=== PATIENT | female | born 1950 | race Two or more races ===

== ENCOUNTER 2023-10-17 11:21 | Emergency (ER) | payer MEDICARE, OTHER, SELFPAY ==
[2023-10-17 11:27] VITALS: BP 110/76
[2023-10-17 11:34] VITALS: BMI 34.0
[2023-10-17] MEDS: NSS 1000 IV (11:42)
[2023-10-17 11:53] LABS: % Basophils 0.2 % (0-2); % Eosinophils 0.2 % (0-6); % Immature Granulocytes 1.5 % (0-0.5); % Lymphocytes 9.4 % (20.5-51.1); % Monocytes 7.8 % (1.7-9.3); % Neutrophils 80.9 % (42.2-75.2); Absolute Immature Granulocytes 0.2 10^3/uL (0-0.05); Absolute Monocytes 0.8 10^3/uL (0.1-0.6); Absolute Neutrophils 8.8 10^3/uL (1.4-6.5); Hematocrit 37.5 % (37.0-47.0); Hemoglobin 13.4 g/dL (12.0-16.0); Mean Corp Hgb Conc. 35.7 g/dL (33.0-37.0); Mean Corpuscular Hgb 31.7 pg (27.0-31.0); Mean Corpuscular Volume 88.7 fL (81.0-99.0); Mean Platelet Volume 8.9 fL (7.4-10.4); Nucleated Red Blood Cells % 0 %; Platelet Count 524 10^3/uL (130-400); Red Blood Cell Count 4.23 10^6/uL (4.20-5.40); Red Cell Dist. Width 12.7 % (11.5-14.5); White Blood Cell Count 10.8 10^3/uL (4.8-10.8)
[2023-10-17 12:07] LABS: ALT (SGPT) 23 U/L (0-35); AST (SGOT) 24 U/L (14-36); Alkaline Phosphatase 122 U/L (38-126); Blood Urea Nitrogen 27 mg/dl (7-17); Calcium 9.1 mg/dl (8.4-10.2); Carbon Dioxide 29 mmol/L (22-30); Chloride 95 mmol/L (98-107); Estimated Creatinine Clearance 55 ml/min; Glucose 128 mg/dl (70-99); Lipase 80 U/L (23-300); Potassium 3.3 mmol/L (3.5-5.1); Sodium 129 mmol/L (135-145); Total Bilirubin 1.6 mg/dl (0.2-1.3); Total Protein 6.4 g/dl (6.3-8.2); eGFR > 60.00
--- NOTE | 2023-10-17 12:20 | EDRN ---
this RN notified provider of the pts K level
[2023-10-17 14:00] VITALS: BP 162/85
[2023-10-17] MEDS: ZOFRAN 4 MG IV (14:16)
--- NOTE | 2023-10-17 14:25 | ED.GENMED ---
History of Present Illness
General
Chief Complaint: Abdominal Symptoms
Source: patient
Exam Limitations: none
Time Seen by Provider: 10/17/23 12:05
Nursing documentation reviewed up to this point in time: agreed with
Travel History
Have you had any contact with someone who has COVID-19?: No
Do you have any symptoms of coronavirus? Fever > 100 degrees, chills, cough, shortness of breath, sore throat, loss of taste or smell, muscle aches, or headache?: No
History of Present Illness
History of Present Illness:
73-year-old female with history of GERD, OCD, anxiety depression had left knee replaced 9 days ago, stopped taking her Senokot, Colace, oxycodone 4 days ago.
She states she had presents stating she is feeling nauseous and 'like something is blocked' since she has been unable to hold anything down. States she started with nausea and vomiting every 10 to 15 minutes 3 days ago.
A small bowel movement today and a normal bowel movement 2 days ago. She had an esophagectomy in 1993, no previous abdominal surgeries.
She states her last emesis was 4 hours ago.
She still feels slightly nauseous.
She denies abdominal pain.
Past History
Past History
ED Past Medical History: Hypercholesterolemia, Psychiatric (anxiety) and Other (Anxiety, esophagectomy, inguinal hernia repair, previous Graves' disease)
ED Past Surgical History: Orthopedic and Other (Esophagectomy)
Social History
Tobacco: Non-smoker
Alcohol: None
Personal: Single
Living: alone
Family History
Family History: Other (Thyroid disease)
Review of Systems
Review of Systems
Allergies reviewed?: Yes
All Other Systems: ROS reviewed and negative except as documented in HPI and ROS
Constitutional: Denies fever or chills
Respiratory: Denies trouble breathing
Cardiac: Denies chest pain
ABD/GI: Reports nausea and vomiting; Denies abdominal pain, diarrhea, constipated, bloody stools, black stools or anorexia
: Reports no symptoms
Musculoskeletal: Reports no symptoms
Skin: Reports no symptoms
Neurological: Reports no symptoms
Phy Exam
Physical Exam
Physical Exam:
GENERAL: No acute distress. A&Ox3.
CONSTITUTIONAL: Afebrile.
EYES: Clear, conjunctivae normal
ENMT: moist mucus membranes, Pharynx nl
RESPIRATORY: Regular respirations, nonlabored, lungs clear.
CARDIOVASCULAR: Regular rate and rhythm, no murmurs, no rubs.
GI: Soft, nontender, nondistended, normal BS
MUSCULOSKELETAL: Moves with ease. Well perfused.
SKIN: Warm, dry, pink
PSYCH: Normal mood and affect. Well kept, interactive and appropriate
NEUROLOGIC: Awake, alert and oriented. No focal neurological deficits
Course
Orders/Labs/Results
Orders:
Orders
10/17/23 11:41
Complete Blood Count/With Diff Urgent
Comprehensive Metabolic Panel Urgent
Lipase Urgent
10/17/23 11:42
0.9% Sodium Chloride 1000 ml [Nss] 1,000 ml IV BOLUS
10/17/23 14:01
CT Abd/Pel (IV only)-DH only Urgent
Comment:
Reason For Exam: vomiting mild abd pain
10/17/23 14:04
Ondansetron Injectable [Zofran] 4 mg IV NOW STA
10/17/23 15:49
Basic Metabolic Panel Urgent
Abnormal Lab Results
10/17/23 10/17/23
11:41 15:49
MCH 31.7 H pg
(27.0-31.0)
Plt Count 524 H 10^3/uL
(130-400)
Abs Immat Gran (auto) 0.2 H 10^3/uL
(0-0.05)
Absolute Neuts (auto) 8.8 H 10^3/uL
(1.4-6.5)
Absolute Lymphs (auto) 1.0 L 10^3/uL
(1.2-3.4)
Absolute Monos (auto) 0.8 H 10^3/uL
(0.1-0.6)
Immature Gran % 1.5 H %
(0-0.5)
Neutrophils % 80.9 H %
(42.2-75.2)
Lymphocytes % 9.4 L %
(20.5-51.1)
Sodium 129 L mmol/L 130 L mmol/L
(135-145) (135-145)
Potassium 3.3 L mmol/L
(3.5-5.1)
Chloride 95 L mmol/L 95 L mmol/L
(98-107) (98-107)
BUN 27 H mg/dl 27 H mg/dl
(7-17) (7-17)
Glucose 128 H mg/dl 100 H mg/dl
(70-99) (70-99)
Total Bilirubin 1.6 H mg/dl
(0.2-1.3)
10/17/23 11:41
10/17/23 15:49
Vital Signs
Initial and Last Documented VS:
Initial Vital Signs
Temp Pulse Resp BP
97.8 F 107 20 110/76
10/17/23 11:27 10/17/23 11:27 10/17/23 11:27 10/17/23 11:27
Last Documented Vital Signs
Temp Pulse Resp BP Pulse Ox
97.8 F 93 20 142/67 97
10/17/23 11:27 10/17/23 17:45 10/17/23 17:45 10/17/23 17:00 10/17/23 17:15
Radio Sportscaster consulted with Physician
Radio Sportscaster consulted with physician?: Yes
Name of Physician Consulted: Noh
MDM/Problems Addressed
Differential Diagnosis Includes:
Bowel obstruction, constipation, GI virus
MDM/Problems Addressed:
73-year-old female with history of GERD, OCD, anxiety depression had left knee replaced 9 days ago, stopped taking her Senokot, Colace, oxycodone 4 days ago.
She states she had presents stating she is feeling nauseous and 'like something is blocked' since she has been unable to hold anything down. States she started with nausea and vomiting every 10 to 15 minutes 3 days ago.
A small bowel movement today and a normal bowel movement 2 days ago. She had an esophagectomy in 1993, no previous abdominal surgeries.
She states her last emesis was 4 hours ago.
She still feels slightly nauseous.
She denies abdominal pain.
10/17/2023 1429 PM
CBC with no clinically significant abnormality
CMP: Sodium 129, potassium 3.3, BUN 27 otherwise normal
This may represent dehydration, will give IV fluids
Patient's abdomen is benign, discussed with Dr. Schmitz who recommends CT abdomen with IV only contrast, if that is unremarkable, I will recheck her lab work post 1 L normal saline infusion
10/17/[address] abdomen radiology report read: No acute abnormality
Repeat BMP: Sodium slightly increased to 130, potassium normalized
Patient is comfortable going home, stable for discharge, will have her blood work rechecked in 1 week.
*Critical Care Note
Total Time (30-74mins, 75-104mins- exclusive of procedures): Not Applicable
ED Attending Note
-
Portions of this chart may have been created with voice recognition software.� Occasional wrong word or��sound alike� substitutions may have occurred due to the inherent limitations of voice recognition software.
Discharge Plan
Departure
Patient Disposition: Home (Routine Discharge)
Date of Disposition: 10/17/23
Time of Disposition: 17:14
Patient with high blood pressure during this ER visit?: No
Condition: Good
Discharge Problem:
Nausea & vomiting, Acute hyponatremia
Instructions: Nausea and Vomiting, Adult (DC), Hyponatremia (DC)
Prescriptions:
New
ondansetron 4 mg tablet,disintegrating
4 mg PO Q8H PRN (Reason: nausea and vomiting) 4 Days Qty: 12 0RF
No Action
Multiple Vitamins And Minerals
1 tab PO DAILY
Adderall
5 mg PO TID
Patient Comments:
Pt unsure of dose.
Metamucil
1 dose PO DAILY
lamotrigine 150 mg Tablet
150 mg PO DAILY
calcium carbonate-vitamin D3 600 mg-5 mcg (200 unit) Tablet
1 tab PO DAILY
ascorbic acid (vitamin C) [Vitamin C] 500 mg Tablet
500 mg PO DAILY
omeprazole 20 mg Tablet,Delayed Release (Dr/Ec)
20 mg PO DAILY
ibuprofen 200 mg Tablet
200 - 400 mg PO Q6H PRN (Reason: pain)
Hold Instructions: Resume on 10/25/23.
Excedrin Migraine 250-250-65 mg Tablet
2 tab PO Q6H PRN (Reason: migraine )
Maxalt
1 tab PO DAILY PRN (Reason: migraine)
mupirocin 2 % ointment
1 applic topical BID Qty: 1 0RF
Patient Comments:
started treatment sunday10/06/23 in am and completed BID, last took at home 10/09/23 in am
celecoxib 200 mg capsule
200 mg PO DAILY Qty: 14 0RF
Rx Instructions:
*take with food
*space out 2 hours from aspirin
gabapentin 300 mg capsule
300 mg PO HS Qty: 10 0RF
aspirin 325 mg tablet
325 mg PO DAILY Qty: 1 0RF
Rx Instructions:
Take with food
docusate sodium [Colace] 100 mg capsule
100 mg PO BID Qty: 1 0RF
magnesium hydroxide [Milk of Magnesia] 400 mg/5 mL suspension
30 ml PO HS PRN (Reason: Constipation) Qty: 1 0RF
sennosides [Senokot] 8.6 mg tablet
17.2 mg PO BID Qty: 2 0RF
acetaminophen [Tylenol] 325 mg capsule
650 mg PO QID Qty: 2 0RF
Referrals:
Ebony Dempsey MD [Family Provider] - Call in 1-3 days for appt
Activity Restrictions/Additional Instructions:
As we discussed, your CAT scan shows nothing worrisome. Specifically no blockage.
Your blood work shows that your sodium is a little low, it improved slightly after some IV fluids but you should have it rechecked in about a week.
Call your primary doctor to schedule a repeat blood test
I sent a prescription to your pharmacy for Zofran to use as needed for nausea.
Interventions
Interventions:
*Risk Screen - Suicide Last Done: 10/17/23 11:34
*General Assessment Last Done: 10/17/23 11:34
*Neglect/Abuse Screening Last Done: 10/17/23 11:34
ED- Fall Risk Assessment Last Done: 10/17/23 11:34
*ED COVID-19 Vaccine History Last Done: 10/17/23 11:27
WE-[facility]iq[facility] Assessment Last Done: 10/17/23 11:34
[2023-10-17 15:51] VITALS: BP 159/79
[2023-10-17 16:00] VITALS: BP 156/73
[2023-10-17 16:34] LABS: Blood Urea Nitrogen 27 mg/dl (7-17); Calcium 8.7 mg/dl (8.4-10.2); Carbon Dioxide 27 mmol/L (22-30); Chloride 95 mmol/L (98-107); Estimated Creatinine Clearance 73 ml/min; Glucose 100 mg/dl (70-99); Sodium 130 mmol/L (135-145); eGFR > 60.00
[2023-10-17 17:00] VITALS: BP 142/67
[2023-10-17 17:57] VITALS: BP 139/67
== END 2023-10-17 18:35 | disposition home or self-care (01) ==
LOC: EMR 11:21
PROVIDERS: Registered Nurse; EMERGENCY PHYSICIAN Emergency Medicine; FAMILY PHYSICIAN Internal Medicine
DX: R11.2 Nausea with vomiting, unspecified (principal); E87.1 Hypo-osmolality and hyponatremia; K21.9 Gastro-esophageal reflux disease without esophagitis; F42.9 Obsessive-compulsive disorder, unspecified; E78.00 Pure hypercholesterolemia, unspecified; Z83.49 Family history of other endocrine, nutritional and metabolic diseases; Z90.49 Acquired absence of other specified parts of digestive tract; Z98.890 Other specified postprocedural states
CPT/HCPCS: 99284; 96374; 96361; 74177; 80048; 80053; 83690; 85025; Q9967

== ENCOUNTER 2023-10-22 14:07 | Outpatient (RCR) | payer MEDICARE, OTHER, SELFPAY | END 2023-10-22 23:59 | disposition home or self-care (01) | LOC: RPT 14:07 | PROVIDERS: ATTENDING PHYSICIAN Orthopaedic Surgery; FAMILY PHYSICIAN Internal Medicine | DX: Z47.1 Aftercare following joint replacement surgery (principal); Z73.6 Limitation of activities due to disability; R26.89 Other abnormalities of gait and mobility; Z96.652 Presence of left artificial knee joint | CPT/HCPCS: 97110; 97116; 97162 ==

== ENCOUNTER 2023-11-19 18:46 | Outpatient (RCR) | payer MEDICARE, OTHER, SELFPAY | END 2023-11-19 23:59 | disposition home or self-care (01) | LOC: RPT 18:46 | PROVIDERS: ATTENDING PHYSICIAN Orthopaedic Surgery; FAMILY PHYSICIAN Internal Medicine | DX: Z47.1 Aftercare following joint replacement surgery (principal); Z73.6 Limitation of activities due to disability; M25.562 Pain in left knee; R26.89 Other abnormalities of gait and mobility; Z96.652 Presence of left artificial knee joint | CPT/HCPCS: 97010; 97110; 97112; 97116; 97530 ==

== ENCOUNTER 2023-12-19 16:52 | Outpatient (RCR) | payer MEDICARE, OTHER, SELFPAY | END 2023-12-19 23:59 | disposition home or self-care (01) | LOC: RPT 16:52 | PROVIDERS: ATTENDING PHYSICIAN Orthopaedic Surgery; FAMILY PHYSICIAN Internal Medicine | DX: Z47.1 Aftercare following joint replacement surgery (principal); Z73.6 Limitation of activities due to disability; M25.562 Pain in left knee; R26.89 Other abnormalities of gait and mobility; Z96.652 Presence of left artificial knee joint | CPT/HCPCS: 97110; 97116; 97530; 97535 ==

== ENCOUNTER 2024-01-18 15:24 | Outpatient (RCR) | payer MEDICARE, OTHER, SELFPAY | END 2024-01-18 23:59 | disposition home or self-care (01) | LOC: RPT 15:24 | PROVIDERS: ATTENDING PHYSICIAN Orthopaedic Surgery; FAMILY PHYSICIAN Internal Medicine | DX: Z47.1 Aftercare following joint replacement surgery (principal); Z73.6 Limitation of activities due to disability; R26.89 Other abnormalities of gait and mobility; M62.81 Muscle weakness (generalized); R26.2 Difficulty in walking, not elsewhere classified; Z96.652 Presence of left artificial knee joint | CPT/HCPCS: 97110; 97530 ==

== ENCOUNTER 2024-02-22 15:09 | Outpatient (RCR) | payer MEDICARE, OTHER, SELFPAY | END 2024-02-22 23:59 | disposition home or self-care (01) | LOC: RPT 15:09 | PROVIDERS: ATTENDING PHYSICIAN Orthopaedic Surgery; FAMILY PHYSICIAN Internal Medicine | DX: Z47.1 Aftercare following joint replacement surgery (principal); Z96.652 Presence of left artificial knee joint; Z73.6 Limitation of activities due to disability | CPT/HCPCS: 97110; 97530; 97535 ==

== ENCOUNTER → 2024-05-05 11:41 | Outpatient (REF) | payer MEDICARE, OTHER, SELFPAY ==
[2024-05-05 13:04] LABS: % Basophils 0.5 % (0-2); % Eosinophils 2.6 % (0-6); % Immature Granulocytes 0.2 % (0-0.5); % Lymphocytes 20.3 % (20.5-51.1); % Monocytes 8.9 % (1.7-9.3); % Neutrophils 67.5 % (42.2-75.2); Absolute Eosinophils 0.1 10^3/uL (0-0.7); Absolute Lymphocytes 0.9 10^3/uL (1.2-3.4); Absolute Monocytes 0.4 10^3/uL (0.1-0.6); Absolute Neutrophils 2.9 10^3/uL (1.4-6.5); Hematocrit 37.8 % (37.0-47.0); Mean Corp Hgb Conc. 34.4 g/dL (33.0-37.0); Mean Corpuscular Hgb 30.8 pg (27.0-31.0); Mean Corpuscular Volume 89.6 fL (81.0-99.0); Mean Platelet Volume 9.2 fL (7.4-10.4); Nucleated Red Blood Cells % 0 %; Platelet Count 320 10^3/uL (130-400); Red Blood Cell Count 4.22 10^6/uL (4.20-5.40); Red Cell Dist. Width 13.2 % (11.5-14.5); White Blood Cell Count 4.3 10^3/uL (4.8-10.8)
[2024-05-05 13:47] LABS: ALT (SGPT) 33 U/L (0-35); AST (SGOT) 31 U/L (14-36); Albumin 4.1 g/dl (3.5-5.0); Alkaline Phosphatase 107 U/L (38-126); Blood Urea Nitrogen 23 mg/dl (7-17); Calcium 9.8 mg/dl (8.4-10.2); Carbon Dioxide 27 mmol/L (22-30); Chloride 105 mmol/L (98-107); Glucose 96 mg/dl (70-99); Potassium 4.4 mmol/L (3.5-5.1); Sodium 138 mmol/L (135-145); Total Bilirubin 0.5 mg/dl (0.2-1.3); Total Protein 6.1 g/dl (6.3-8.2); Triglyceride 80 mg/dl (10-149); Very Low Density Lipoprotein 16 mg/dl (0-30)
[2024-05-05 13:59] LABS: HDL Cholesterol 123 mg/dl; LDL Cholesterol, Calculated 110 mg/dl; Total Cholesterol 249 mg/dl (50-199); eGFR > 60.00
[2024-05-05 14:02] LABS: TSH Reflex To Free T4 0.43 uIU/ml (0.47-4.68)
[2024-05-05 14:31] LABS: Free T4 0.99 ng/dl (0.78-2.19)
== END ==
LOC: REG 11:41
PROVIDERS: ATTENDING PHYSICIAN Internal Medicine
DX: R73.9 Hyperglycemia, unspecified (principal); Z68.31 Body mass index [BMI] 31.0-31.9, adult; E78.5 Hyperlipidemia, unspecified; R79.9 Abnormal finding of blood chemistry, unspecified
CPT/HCPCS: 36415; 80053; 80061; 84439; 84443; 85025

== ENCOUNTER 2024-12-25 06:23 | Day surgery (SDC) | payer MEDICARE, OTHER, SELFPAY | END 2024-12-25 16:20 | disposition home or self-care (01) | LOC: GI 06:23 | PROVIDERS: ATTENDING PHYSICIAN Internal Medicine | DX: Z12.11 Encounter for screening for malignant neoplasm of colon (principal); D12.2 Benign neoplasm of ascending colon; D12.5 Benign neoplasm of sigmoid colon; K57.30 Diverticulosis of large intestine without perforation or abscess without bleeding; K64.9 Unspecified hemorrhoids; K58.9 Irritable bowel syndrome, unspecified; K22.719 Barrett's esophagus with dysplasia, unspecified; K29.50 Unspecified chronic gastritis without bleeding; Z13.810 Encounter for screening for upper gastrointestinal disorder | CPT/HCPCS: 45385; 43239; 88305; 88342 ==

== ENCOUNTER → 2025-04-07 11:41 | Outpatient (REF) | payer MEDICARE, OTHER, SELFPAY | LOC: RAD 11:41 | PROVIDERS: ATTENDING PHYSICIAN Nurse Practitioner Adult Health; FAMILY PHYSICIAN Internal Medicine | DX: S20.211A Contusion of right front wall of thorax, initial encounter (principal) | CPT/HCPCS: 71111; 71120 ==

== ENCOUNTER → 2025-04-18 09:04 | Outpatient (REF) | payer MEDICARE, OTHER, SELFPAY | LOC: RAD 09:04 | PROVIDERS: ATTENDING PHYSICIAN Internal Medicine | DX: R07.89 Other chest pain (principal) | CPT/HCPCS: 71250 ==

== ENCOUNTER → 2025-05-14 07:54 | Outpatient (REF) | payer MEDICARE, OTHER, SELFPAY ==
[2025-05-14 08:43] LABS: Hematocrit 39.1 % (37.0-47.0); Hemoglobin 13.1 g/dL (12.0-16.0); Mean Corp Hgb Conc. 33.5 g/dL (33.0-37.0); Mean Corpuscular Volume 93.1 fL (81.0-99.0); Nucleated Red Blood Cells % 0 %; Platelet Count 309 10^3/uL (130-400); Red Cell Dist. Width 13.4 % (11.5-14.5)
[2025-05-14 09:07] LABS: ALT (SGPT) 27 U/L (0-35); AST (SGOT) 23 U/L (14-36); Albumin 4.2 g/dl (3.5-5.0); Alkaline Phosphatase 93 U/L (38-126); Blood Urea Nitrogen 24 mg/dl (7-17); Calcium 9.5 mg/dl (8.4-10.2); Carbon Dioxide 28 mmol/L (22-30); Chloride 106 mmol/L (98-107); Glucose 95 mg/dl (70-99); Potassium 4.3 mmol/L (3.5-5.1); Sodium 139 mmol/L (135-145); Total Protein 6.4 g/dl (6.3-8.2); Very Low Density Lipoprotein 13 mg/dl (0-30); eGFR > 60.00
[2025-05-14 09:20] LABS: HDL Cholesterol 133 mg/dl; LDL Cholesterol, Calculated 95 mg/dl
[2025-05-14 10:37] LABS: Glycohemoglobin (HgbA1c) 5.4 % (4.0-5.6)
== END ==
LOC: REG 07:54
PROVIDERS: ATTENDING PHYSICIAN Internal Medicine
DX: E05.90 Thyrotoxicosis, unspecified without thyrotoxic crisis or storm (principal); R73.9 Hyperglycemia, unspecified; M75.41 Impingement syndrome of right shoulder; E78.2 Mixed hyperlipidemia
CPT/HCPCS: 36415; 80053; 80061; 83036; 84443; 85025

== ENCOUNTER → 2025-07-31 10:53 | Outpatient (REF) | payer MEDICARE, OTHER, SELFPAY | LOC: RAD 10:53 | PROVIDERS: ATTENDING PHYSICIAN Internal Medicine | DX: E04.1 Nontoxic single thyroid nodule (principal) | CPT/HCPCS: 76536 ==

== ENCOUNTER → 2025-09-11 14:00 | Outpatient (REF) | payer MEDICARE, OTHER, SELFPAY | LOC: WDC 14:00 | PROVIDERS: ATTENDING PHYSICIAN Internal Medicine | DX: Z12.31 Encounter for screening mammogram for malignant neoplasm of breast (principal) | CPT/HCPCS: 77063; 77067 ==